=== PATIENT | male | born 1985 | race Caucasian/White ===

== ENCOUNTER 2023-07-06 15:19 | Emergency (ER) | payer MEDICARE ==
[~2023-07-06] VITALS: Ht 175.2 cm; Wt 65.8 kg
[2023-07-06] MEDS ORDERED: Acetaminophen/Oxycodone 5 MG/325 MG TABLET PO ONE (15:40)
[2023-07-06] MEDS ORDERED: PERCOCET 5-3251 EACH PO (16:23)
== END 2023-07-06 16:48 | disposition home or self-care (01) ==
LOC: ED 15:19
DX: S62.336A Displaced fracture of neck of fifth metacarpal bone, right hand, initial encounter for closed fracture (principal); Z88.5 Allergy status to narcotic agent; W22.01XA Walked into wall, initial encounter; Y93.89 Activity, other specified; Y92.89 Other specified places as the place of occurrence of the external cause; Y99.0 Civilian activity done for income or pay

== ENCOUNTER → 2023-07-17 | Outpatient (CLI) | payer MEDICARE ==
[~2023-07-17] MED LIST: PERCOCET 5-3251 EACH PO
== END | disposition home or self-care (01) ==
LOC: ORTHO 00:56
PROVIDERS: ATTEND Orthopaedic Surgery
DX: S62.366D Nondisplaced fracture of neck of fifth metacarpal bone, right hand, subsequent encounter for fracture with routine healing (principal); X58.XXXD Exposure to other specified factors, subsequent encounter

== ENCOUNTER → 2023-07-28 | Outpatient (CLI) | payer MEDICARE | END | disposition home or self-care (01) | LOC: ORTHO 02:11 | PROVIDERS: ATTEND Orthopaedic Surgery | DX: S62.366D Nondisplaced fracture of neck of fifth metacarpal bone, right hand, subsequent encounter for fracture with routine healing (principal); X58.XXXD Exposure to other specified factors, subsequent encounter ==

== ENCOUNTER 2023-08-02 21:05 | Emergency (ER) | payer MEDICARE ==
[~2023-08-02] VITALS: Ht 175.2 cm; Wt 63.5 kg
[2023-08-02] MEDS ORDERED: Ketorolac Tromethamine 60 MG/2 ML VIAL IM ONE (21:20)
[2023-08-02] MEDS ORDERED: Motrin,Rufen800 MG PO (22:10)
== END 2023-08-02 22:46 | disposition home or self-care (01) ==
LOC: ED 21:05
DX: S62.396A Other fracture of fifth metacarpal bone, right hand, initial encounter for closed fracture (principal); Z88.5 Allergy status to narcotic agent; X50.0XXA Overexertion from strenuous movement or load, initial encounter; Y93.89 Activity, other specified; Y92.89 Other specified places as the place of occurrence of the external cause; Y99.0 Civilian activity done for income or pay

== ENCOUNTER 2024-08-17 15:54 | Emergency (ER) | payer MEDICARE ==
[~2024-08-17] VITALS: Ht 175.2 cm
[~2024-08-17 15:54] MED LIST changes: +Motrin,Rufen800 MG PO
[2024-08-17] MEDS ORDERED: Lidocaine Hydrochloride 30 ML VIAL IM ONE (16:30)
[2024-08-17] MEDS ORDERED: Lidocaine Hydrochloride 5 ML AMP ONE (16:50)
[2024-08-17] MEDS ORDERED: Bacitracin Zinc 14 GM TUBE T ONE (16:50)
[2024-08-17] MEDS ORDERED: Tdap Vaccine 0.5 ML SYR (Adult Vaccine) IM ONE (16:50)
== END 2024-08-17 16:58 | disposition home or self-care (01) ==
LOC: ED 15:54
DX: S61.011A Laceration without foreign body of right thumb without damage to nail, initial encounter (principal); Z88.5 Allergy status to narcotic agent; W26.0XXA Contact with knife, initial encounter; Y93.89 Activity, other specified; Y92.89 Other specified places as the place of occurrence of the external cause; Y99.8 Other external cause status

== ENCOUNTER 2024-08-26 13:48 | Emergency (ER) | payer MEDICARE, MEDICAID ==
[~2024-08-26] VITALS: Wt 81.6 kg
== END 2024-08-26 14:32 | disposition home or self-care (01) ==
LOC: ED 13:48
DX: S61.011D Laceration without foreign body of right thumb without damage to nail, subsequent encounter (principal); Z48.02 Encounter for removal of sutures; Z88.5 Allergy status to narcotic agent; W26.0XXD Contact with knife, subsequent encounter

== ENCOUNTER 2025-02-17 23:47 | Emergency (ER) | payer MEDICARE, MEDICAID ==
[~2025-02-17] VITALS: Ht 175.2 cm; Wt 61.2 kg
[2025-02-18] MEDS ORDERED: PENICILLIN V POTASSIUM 500 MG TAB PO ONE (00:05)
[2025-02-18] MEDS ORDERED: PENICILLIN VK500 MG PO (00:06)
== END 2025-02-18 00:17 | disposition home or self-care (01) ==
LOC: ED 23:47
DX: K02.9 Dental caries, unspecified (principal); K08.89 Other specified disorders of teeth and supporting structures; Z88.5 Allergy status to narcotic agent; Z86.73 Personal history of transient ischemic attack (TIA), and cerebral infarction without residual deficits